=== PATIENT | male | born 1970 | race Caucasian/White ===

== ENCOUNTER 2019-04-05 05:13 | Inpatient (IN) | payer MEDICAID ==
[~2019-04-05] VITALS: Ht 152.4 cm; Wt 65.8 kg
[2019-04-05] MEDS ORDERED: LACTATED RINGERS 1,000 ML IV SCH (06:30)
[2019-04-05] MEDS ORDERED: BUPIVACAINE HCL/PF 0.5% (5MG/ML) 10ML ONE (06:42)
[2019-04-05] MEDS ORDERED: LIDOCAINE HCL 1% 20ML VIAL (Pyxis) INJ ONE (06:42)
[2019-04-05] MEDS ORDERED: BACITRACIN 50,000 UNITS/VIAL ONE (06:42)
[2019-04-05] MEDS ORDERED: SKIN ADHESIVE 0.7 GM EA TOP ONE ×2 (06:42→06:43)
[2019-04-05] MEDS ORDERED: NORMAL SALINE 0.9% 10 ML SYR ONE (06:43)
[2019-04-05] MEDS ORDERED: CEFOXITIN SODIUM 2 G in DEXT 5% WATER 100 ML IV ONE (06:45)
[2019-04-05] MEDS ORDERED: INDOCYANINE GREEN 25 MG VIAL IV ONE (07:24)
[2019-04-05] MEDS ORDERED: FENTANYL CITRATE/PF 50MCG/ML 2ML VIAL ONE ×2 (07:37→09:54)
[2019-04-05] MEDS ORDERED: PROPOFOL 200MG/20ML VIAL IV ONE (07:37)
[2019-04-05] MEDS ORDERED: LIDOCAINE HCL/PF 1% 10 MG/ML 5ML VIAL ONE (07:37)
[2019-04-05] MEDS ORDERED: MIDAZOLAM HCL 2 MG/2 ML VIAL ONE (07:37)
[2019-04-05] MEDS ORDERED: ROCURONIUM BROMIDE 10MG/ML VIAL 5ML IV ONE (07:38)
[2019-04-05] MEDS ORDERED: DEXAMETHASONE 4MG/ML 1ML VIAL ONE (08:02)
[2019-04-05] MEDS ORDERED: ONDANSETRON HCL 4MG/2ML INJ ONE (08:02)
[2019-04-05] MEDS ORDERED: GLYCOPYRROLATE 0.2 MG/ML 2ML VIAL ONE (08:30)
[2019-04-05] MEDS ORDERED: SUCCINYLCHOLINE CHLORIDE 200MG/10ML IV ONE (09:19)
[2019-04-05] MEDS: HYDROMORPHONE HCL/PF 2MG/ML CPJ IV PRN ×2 (10:40→10:55)
[2019-04-05] MEDS ORDERED: HYDROMORPHONE HCL/PF 2MG/ML CPJ IV PRN (10:45)
[2019-04-05] MEDS ORDERED: ONDANSETRON HCL 4MG/2ML INJ IV PRN (10:45)
[2019-04-05 12:15] VITALS: BP 107/75
[2019-04-05] MEDS: KETOROLAC 30MG/ML VIAL IV SCH ×2 (12:30→18:49)
[2019-04-05] MEDS: SODIUM CHLORIDE 0.45% 1,000 ML IV SCH ×2 (16:25→21:07)
[2019-04-05 20:00] VITALS: BP 96/53
[2019-04-06] VITALS: BP 95/47
[2019-04-06 04:00] VITALS: BP 92/42
[2019-04-06] MEDS: SODIUM CHLORIDE 0.45% 1,000 ML IV SCH (06:34)
[2019-04-06] MEDS: KETOROLAC 30MG/ML VIAL IV SCH ×2 (06:58)
[2019-04-06 08:00] VITALS: BP 92/56
[2019-04-06 09:21] VITALS: BP 92/56
== END 2019-04-06 10:36 | disposition home or self-care (01) | DRG 263 ==
LOC: OR 05:13 → 6EST 05:14
PROVIDERS: ADMIT Specialist; ATTEND Specialist
PROC: 0FT44ZZ Resection of Gallbladder, Percutaneous Endoscopic Approach (ICD-10-PCS; principal; 2019-04-05)
PROC: 8E0W4CZ Robotic Assisted Procedure of Trunk Region, Percutaneous Endoscopic Approach (ICD-10-PCS; 2019-04-05)
DX: K80.10 Calculus of gallbladder with chronic cholecystitis without obstruction (principal); K80.80 Other cholelithiasis without obstruction; K82.8 Other specified diseases of gallbladder
CPT/HCPCS: 82962; 88304; C1893; J0330; J0694; J1100; J1170; J1885; J2250; J2405; J2704; J3010; J3490; J7060; Q9957